=== PATIENT | female | born 1945 | race Caucasian/White ===

== ENCOUNTER 2023-06-13 10:00 | Outpatient (RCR) | payer MEDICARE, OTHER, SELFPAY | END 2023-06-13 23:59 | disposition home or self-care (01) | LOC: RPT 10:00 | PROVIDERS: ATTENDING PHYSICIAN Orthopaedic Surgery Adult Reconstructive Orthopaedic Surgery; FAMILY PHYSICIAN Internal Medicine | DX: Z47.1 Aftercare following joint replacement surgery (principal); M25.552 Pain in left hip; Z73.6 Limitation of activities due to disability; R26.2 Difficulty in walking, not elsewhere classified; M62.81 Muscle weakness (generalized); R26.89 Other abnormalities of gait and mobility; Z96.642 Presence of left artificial hip joint | CPT/HCPCS: 97010; 97110; 97112; 97162 ==

== ENCOUNTER 2023-06-29 13:11 | Emergency (ER) | payer MEDICARE, OTHER, SELFPAY ==
[2023-06-29 13:14] VITALS: BP 204/71
[2023-06-29 13:39] LABS: % Basophils 0.6 % (0-2); % Immature Granulocytes 0.2 % (0-0.5); % Lymphocytes 22.7 % (20.5-51.1); % Monocytes 6.7 % (1.7-9.3); % Neutrophils 66.8 % (42.2-75.2); Absolute Basophils 0.1 10^3/uL (0-0.2); Absolute Eosinophils 0.2 10^3/uL (0-0.7); Absolute Lymphocytes 1.8 10^3/uL (1.2-3.4); Absolute Monocytes 0.5 10^3/uL (0.1-0.6); Absolute Neutrophils 5.4 10^3/uL (1.4-6.5); Hematocrit 40.3 % (37.0-47.0); Hemoglobin 13.5 g/dL (12.0-16.0); Mean Corp Hgb Conc. 33.5 g/dL (33.0-37.0); Mean Corpuscular Hgb 28.8 pg (27.0-31.0); Mean Corpuscular Volume 86.1 fL (81.0-99.0); Mean Platelet Volume 9.5 fL (7.4-10.4); Nucleated Red Blood Cells % 0 %; Platelet Count 228 10^3/uL (130-400); Red Blood Cell Count 4.68 10^6/uL (4.20-5.40); Red Cell Dist. Width 13.8 % (11.5-14.5); White Blood Cell Count 8.1 10^3/uL (4.8-10.8)
[2023-06-29 13:58] LABS: AST (SGOT) 31 U/L (14-36); Albumin 4.3 g/dl (3.5-5.0); Alkaline Phosphatase 84 U/L (38-126); Blood Urea Nitrogen 14 mg/dl (7-17); Calcium 9.8 mg/dl (8.4-10.2); Carbon Dioxide 32 mmol/L (22-30); Chloride 103 mmol/L (98-107); Glucose 113 mg/dl (70-99); Magnesium 2.1 mg/dl (1.6-2.3); Potassium 3.8 mmol/L (3.5-5.1); Sodium 139 mmol/L (135-145); Total Bilirubin 0.8 mg/dl (0.2-1.3); Total Protein 7.1 g/dl (6.3-8.2); eGFR > 60.00
[2023-06-29 14:06] LABS: ALT (SGPT) 24 U/L (0-35)
[2023-06-29 16:31] VITALS: BP 185/91
[2023-06-29 17:00] VITALS: BP 180/86
--- NOTE | 2023-06-29 17:06 | ED.GENMED ---
History of Present Illness
General
Chief Complaint: Blood Pressure Problem
Source: patient
Time Seen by Provider: 06/29/23 16:17
Travel History
Have you had any contact with someone who has COVID-19?: No
Do you have any symptoms of coronavirus? Fever > 100 degrees, chills, cough, shortness of breath, sore throat, loss of taste or smell, muscle aches, or headache?: No
History of Present Illness
History of Present Illness:
77-year-old female with past medical history of hypertension, hyperlipidemia and anxiety presenting emergency department for evaluation of elevated blood pressure at home noting that today when she took her blood pressure it was 206/110. Patient
states that since Tuesday she has been hearing intermittent 'whooshing sensation in her right ear' that has been intermittent, often will only last for around 1 minute and then resolved. Patient states that when the symptoms started this past
Tuesday she could feel her pulse at the front of her ear on the right side which she states she does not remember if she is felt that before. Patient noted that she recently started a magnesium supplement for cognitive reasons and wonders if the
magnesium may have caused her symptoms. She denies any fevers or recent illnesses/URI-like symptoms, auditory changes, visual disturbances, headache, chest pain, shortness of breath or any other concerns. She states that she is on isosorbide for
blood pressure and notes that she had been on lisinopril before but her primary took her off of this a little while ago. Family history was noncontributory for any neurologic problems.
Past History
Past History
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
ED Past Surgical History: and Orthopedic
Social History
Tobacco: Non-smoker
Alcohol: None
Drug: None
Personal:
Living: with family
Employment: Retired
Family History
Family History: CAD
Review of Systems
Review of Systems
All Other Systems: ROS reviewed and negative except as documented in HPI and ROS
Phy Exam
Physical Exam
Physical Exam:
GENERAL: Alert , in no apparent distress
EYE: pupils equal and reactive, EOMI, pupils 3 mm bilateral, no nystagmus
NECK: Supple, no significant adenopathy. No carotid bruit
ENT: o/p clr, mmm. TMs clear and pearly bilateral, cone of light visualized bilateral, no TM perforations
CARDIAC: Regular rate and rhythm, no murmur.
LUNGS: Clear breath sounds bilaterally, no acute respiratory distress, no wheezes/rales/rhonchi
NEUROLOGICAL: Alert and oriented, no focal neuro deficits, moves all extremities and ambulates with steady gait
SKIN: Warm and dry, skin intact.
MUSCULOSKELETAL: No edema, well perfused.
PSYCH: Normal and appropriate interaction.
Scores
Heart Failure Risk
Heart Failure Risk Score: Not Applicable
Heart Score for Chest Pain Patients
STEMI patient?: Not applicable
Withdrawal Assessment of Alcohol
Withdrawal Assessment Completed?: Not applicable
Course
Orders/Labs/Results
Orders:
Orders
06/29/23 13:18
EKG [Electrocardiogram (*1)] Urgent
Reason for Study: Hypertension, Benign
06/29/23 13:19
EKG- Treatment ONCE
06/29/23 13:25
Complete Blood Count/With Diff Urgent
Comprehensive Metabolic Panel Urgent
Magnesium Urgent
06/29/23 16:21
CT Head W/o Iv Contrast Urgent
Comment:
Reason For Exam: HTN, headache
Abnormal Lab Results
06/29/23
13:25
Carbon Dioxide 32 H mmol/L
(22-30)
Glucose 113 H mg/dl
(70-99)
06/29/23 13:25
06/29/23 13:25
Vital Signs
Initial and Last Documented VS:
Initial Vital Signs
Temp Pulse Resp BP Pulse Ox
98.7 F 79 18 204/71 95
06/29/23 13:14 06/29/23 13:14 06/29/23 13:14 06/29/23 13:14 06/29/23 13:14
Last Documented Vital Signs
Temp Pulse Resp BP Pulse Ox
98.7 F 69 13 162/74 96
06/29/23 13:14 06/29/23 19:15 06/29/23 19:15 06/29/23 19:00 06/29/23 19:15
MDM/Problems Addressed
Differential Diagnosis Includes:
Tinnitus, infectious etiology such as otitis media/externa, vascular/arterial disease, aneurysm, carotid stenosis, hypertensive urgency/emergency
MDM/Problems Addressed:
77-year-old female presenting to the emergency department for evaluation noting a whooshing sensation in her right ear that is different from previous episodes of tinnitus she has had in the past. She is denying any other symptoms including
headache, visual changes, focal weakness or numbness or any other concerns. Due to the persistent nature of her symptoms she decided to check her blood pressure today when she noted it to be significantly elevated at greater than 200 systolically
and 100 diastolically. Patient blood pressure is somewhat improved on arrival here and during my exam patient's blood pressure is 180/86. She is asymptomatic at time of my exam as well. No focal physical exam findings. Due to the elevated blood
pressure will check a CT of the head. Reassessment following. Of note, when going back and looking at patient's ER history she has had blood pressures in similar range and she does note a history of 'whitecoat syndrome'
Chronic conditions affecting care: HTN
Acute Exacerbation and/or Progression of Chronic Illness: HTN
*Radiology
Radiology exam reviewed: radiology read reviewed
*Pulse Oximetry
Patient hypoxic: no
*EKG
Interpreted by ED Provider?: Yes
Comparison EKG: no changes
Heart Rate: 83
Rate: normal
Rhythm: sinus and PVC's
[place]: normal axis
Ischemia: no ischemia
*Critical Care Note
Total Time (30-74mins, 75-104mins- exclusive of procedures): Not Applicable
Data Reviewed
Review of Other/Old Records Reveals: Testing
Source: patient
Patient Management
Escalation/DeEscalation of care consider admission/obs:
CT negative for any acute pathologies. Patient's blood pressure while still hypertensive is significantly improved from initial. She remains asymptomatic. Advise close follow-up with primary care physician. Aware of return precautions but
otherwise stable for discharge home.
ED Attending Note
-
Portions of this chart may have been created with voice recognition software.� Occasional wrong word or��sound alike� substitutions may have occurred due to the inherent limitations of voice recognition software.
Discharge Plan
Departure
Patient Disposition: Home (Routine Discharge)
Date of Disposition: 06/29/23
Time of Disposition: 19:29
Patient with high blood pressure during this ER visit?: Yes
Discharge Problem:
Essential (primary) hypertension
Instructions: High Blood Pressure (DC)
Prescriptions:
No Action
multivitamin [Multi-Day] 1 EACH tablet
1 ea PO DAILY
cyanocobalamin (vitamin B-12) 1,000 MCG tablet
1,000 mcg PO DAILY
diazepam 5 MG tablet
5 mg PO PRN PRN (Reason: anxiety)
Patient Comments:
patient reports taking this medication about 4 months ago
cholecalciferol (vitamin D3) [Vitamin D3] 1,000 UNIT capsule
1,000 unit PO DAILY
cranberry extract 500 MG capsule
500 mg PO DAILY
coenzyme [id number] [Co Q-10 (with Vit E)] 1 EACH capsule
1 ea PO DAILY
L.acidoph, paracasei,B. lactis 1 EACH capsule
1 ea PO DAILY
Patient Comments:
Takes Align
simvastatin 20 MG tablet
20 mg PO HS
Flonase Nasal [place]:
2 sprays DAILY
Patient Comments:
2 sprays each nostril daily
sennosides [senna] 1 TABLET tablet
2 tab PO BID Qty: 0 0RF
acetaminophen 325 MG tablet
650 mg PO QID Qty: 0 0RF
polyethylene glycol 3350 17 GRAMS powder in packet
17 grams PO DAILY Qty: 0 0RF
aspirin 81 MG tablet,delayed release (DR/EC)
162 mg PO BID Qty: 0 0RF
Rx Instructions:
w food
magnesium hydroxide 30 ML suspension
30 ml PO DAILYPRN PRN (Reason: constipation) Qty: 0 0RF
oxycodone 5 MG tablet
5 mg PO Q4HPRN PRN (Reason: moderate-severe pain) Qty: 90 0RF
Rx Instructions:
dx tka
1-2 tabs
ongoing therapy
lisinopril 10 MG tablet
20 mg PO DAILY Qty: 0 0RF
Rx Instructions:
hold x 2 d, then resume if systolic BP >130
hydrochlorothiazide [Microzide] 12.5 MG capsule
25 mg PO DAILY Qty: 0 0RF
Rx Instructions:
resume tuesday06/07/16, if systolic bp >130
Referrals:
Charlotte Courtney MD [Family Provider] -
Interventions
Interventions:
*Risk Screen - Suicide Last Done: 06/29/23 13:14
*General Assessment Last Done: 06/29/23 13:14
*Neglect/Abuse Screening Last Done: 06/29/23 16:15
ED- Fall Risk Assessment Last Done: 06/29/23 16:57
*ED COVID-19 Vaccine History Last Done: 06/29/23 13:14
*Nursing Disposition Last Done: 06/29/23 19:44
ED- Cardiac Assessment Last Done: 06/29/23 16:57
ED- Neurological Assessment Last Done: 06/29/23 16:57
ED- Pulmonary Assessment Last Done: 06/29/23 16:57
Discharge Date and Time
Discharge Date/Time: 06/29/23 19:51
[2023-06-29 18:00] VITALS: BP 163/73
[2023-06-29 19:00] VITALS: BP 162/74
== END 2023-06-29 19:51 | disposition home or self-care (01) ==
LOC: EMR 13:11
PROVIDERS: Emergency Medicine; EMERGENCY PHYSICIAN Emergency Medicine; FAMILY PHYSICIAN Internal Medicine
DX: I10 Essential (primary) hypertension (principal); E78.00 Pure hypercholesterolemia, unspecified; F41.9 Anxiety disorder, unspecified; Z79.899 Other long term (current) drug therapy; Z79.82 Long term (current) use of aspirin; Z88.8 Allergy status to other drugs, medicaments and biological substances; Z91.048 Other nonmedicinal substance allergy status
CPT/HCPCS: 99284; 70450; 80053; 83735; 85025; 93005

== ENCOUNTER 2023-07-11 12:59 | Outpatient (RCR) | payer MEDICARE, OTHER, SELFPAY | END 2023-07-11 23:59 | disposition home or self-care (01) | LOC: RPT 12:59 | PROVIDERS: ATTENDING PHYSICIAN Orthopaedic Surgery Adult Reconstructive Orthopaedic Surgery; FAMILY PHYSICIAN Internal Medicine | DX: Z47.1 Aftercare following joint replacement surgery (principal); M25.552 Pain in left hip; Z73.6 Limitation of activities due to disability; R26.2 Difficulty in walking, not elsewhere classified; M62.81 Muscle weakness (generalized); Z96.642 Presence of left artificial hip joint | CPT/HCPCS: 97110 ==

== ENCOUNTER 2023-07-15 09:36 | Outpatient (RCR) | payer MEDICARE, OTHER, SELFPAY | END 2023-07-15 23:59 | disposition home or self-care (01) | LOC: RPT 09:36 | PROVIDERS: ATTENDING PHYSICIAN Orthopaedic Surgery Adult Reconstructive Orthopaedic Surgery; FAMILY PHYSICIAN Internal Medicine | DX: Z47.1 Aftercare following joint replacement surgery (principal); M25.552 Pain in left hip; Z73.6 Limitation of activities due to disability; R26.2 Difficulty in walking, not elsewhere classified; M62.81 Muscle weakness (generalized); Z96.642 Presence of left artificial hip joint | CPT/HCPCS: 97110 ==

== ENCOUNTER → 2023-09-05 15:49 | Outpatient (REF) | payer MEDICARE, OTHER, SELFPAY | LOC: HWWDC 15:49 | PROVIDERS: ATTENDING PHYSICIAN Internal Medicine | DX: Z12.31 Encounter for screening mammogram for malignant neoplasm of breast (principal) | CPT/HCPCS: 77063; 77067 ==

== ENCOUNTER → 2023-10-04 09:15 | Outpatient (REF) | payer MEDICARE, OTHER, SELFPAY | LOC: DHSLP 09:15 | PROVIDERS: ATTENDING PHYSICIAN Internal Medicine Critical Care Medicine; FAMILY PHYSICIAN Internal Medicine | DX: G47.33 Obstructive sleep apnea (adult) (pediatric) (principal); G47.61 Periodic limb movement disorder | CPT/HCPCS: 95811 ==

== ENCOUNTER → 2024-01-19 09:24 | Outpatient (REF) | payer MEDICARE, OTHER, SELFPAY | LOC: HWRAD 09:24 | PROVIDERS: ATTENDING PHYSICIAN Internal Medicine | DX: Z78.0 Asymptomatic menopausal state (principal) | CPT/HCPCS: 77080 ==

== ENCOUNTER 2024-07-13 10:06 | Outpatient (RCR) | payer MEDICARE, OTHER, SELFPAY | END 2024-07-13 23:59 | disposition home or self-care (01) | LOC: RPT 10:06 | PROVIDERS: ATTENDING PHYSICIAN Orthopaedic Surgery Adult Reconstructive Orthopaedic Surgery; FAMILY PHYSICIAN Internal Medicine | DX: M25.552 Pain in left hip (principal); M70.72 Other bursitis of hip, left hip; Z73.6 Limitation of activities due to disability; R26.89 Other abnormalities of gait and mobility; Z96.642 Presence of left artificial hip joint | CPT/HCPCS: 97110; 97140; 97162 ==

== ENCOUNTER 2024-07-31 09:57 | Outpatient (RCR) | payer MEDICARE, OTHER, SELFPAY | END 2024-07-31 11:33 | disposition home or self-care (01) | LOC: RPT 09:57 | PROVIDERS: ATTENDING PHYSICIAN Orthopaedic Surgery Adult Reconstructive Orthopaedic Surgery; FAMILY PHYSICIAN Internal Medicine | DX: M25.552 Pain in left hip (principal); M70.72 Other bursitis of hip, left hip; R26.89 Other abnormalities of gait and mobility; Z73.6 Limitation of activities due to disability; Z96.642 Presence of left artificial hip joint | CPT/HCPCS: 97110 ==

== ENCOUNTER → 2024-10-02 12:49 | Outpatient (REF) | payer MEDICARE, OTHER, SELFPAY | LOC: HWRCS 12:49 | PROVIDERS: ATTENDING PHYSICIAN Internal Medicine Cardiovascular Disease; FAMILY PHYSICIAN Internal Medicine | DX: I49.3 Ventricular premature depolarization (principal); E78.00 Pure hypercholesterolemia, unspecified; I10 Essential (primary) hypertension; R60.0 Localized edema | CPT/HCPCS: 93306 ==

== ENCOUNTER → 2024-10-05 11:59 | Outpatient (REF) | payer MEDICARE, OTHER, SELFPAY | LOC: RCS 11:59 | PROVIDERS: ATTENDING PHYSICIAN Internal Medicine Cardiovascular Disease; FAMILY PHYSICIAN Internal Medicine | DX: I49.3 Ventricular premature depolarization (principal); R00.1 Bradycardia, unspecified; E78.00 Pure hypercholesterolemia, unspecified; R07.89 Other chest pain | CPT/HCPCS: 78452; 93017; A9500; J2785 ==

== ENCOUNTER → 2024-12-24 09:56 | Outpatient (REF) | payer MEDICARE, OTHER, SELFPAY | LOC: HWWDC 09:56 | PROVIDERS: ATTENDING PHYSICIAN Internal Medicine | DX: Z12.31 Encounter for screening mammogram for malignant neoplasm of breast (principal) | CPT/HCPCS: 77063; 77067 ==

== ENCOUNTER 2025-02-01 15:28 | Inpatient (IN) | payer MEDICARE, OTHER, SELFPAY ==
[2025-01-31 23:29] VITALS: BP 199/107
--- NOTE | 2025-01-31 23:43 | ED.GENMED ---
History of Present Illness
<Cristina Rivera PA-C - Last Filed: 02/01/25 02:30>
General
Chief Complaint: Chest Pain
Source: patient and family
Exam Limitations: none
Time Seen by Provider: 01/31/25 23:42
Nursing documentation reviewed up to this point in time: agreed with
History of Present Illness
History of Present Illness:
Patient is a 79-year-old female with history of hypertension, hyperlipidemia who presents to the emergency department for evaluation of chest tightness. Patient [place] she had a gradual onset tightness sensation in
her central chest wrapping around through her central back. This pain initially started around 9:30 PM. She describes it mainly as a tightness/pressure sensation with a minimal sharp component.
She denies any associated shortness of breath however does have some difficulty taking a deep breath. No associated lightheadedness/dizziness, diaphoresis, or nausea. No visual changes or numbness/tingling in extremities.
Patient did not have anything to eat immediately prior to onset of symptoms. She states she last ate out of a hoagie and some ice cream around 4 PM.
Patient has a history of acid reflux and initially felt that symptoms were similar however given the severity and persistence she asked her to drive her to the emergency department for evaluation.
By my assessment�patient states the pressure in her chest has started to dissipate however she still has a significant amount of discomfort in her mid back.
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 She is not on any oral anticoagulation.
Past History
<Cristina Rivera PA-C - Last Filed: 02/01/25 02:30>
Past History
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
ED Past Surgical History: and Orthopedic
Social History
Tobacco: Non-smoker
Alcohol: None
Drug: None
Personal:
Living: with family
Employment: Retired
Family History
Family History: CAD
Review of Systems
<Cristina Rivera PA-C - Last Filed: 02/01/25 02:30>
Review of Systems
Allergies reviewed?: Yes
All Other Systems: ROS reviewed and negative except as documented in HPI and ROS
Phy Exam
<Cristina Rivera PA-C - Last Filed: 02/01/25 02:30>
Physical Exam
Physical Exam:
Vitals: Hypertensive on arrival, otherwise vital signs stable. Afebrile
General: Patient is moderately uncomfortable appearing due to pain.
Skin: Warm and dry, no rashes or lesions
Head: Normocephalic, atraumatic
Eyes: Sclera nonicteric. EOMs intact. No nystagmus.
Throat: Protecting airway
Neck: Normal ROM, no cervical spine tenderness, no meningismus
Cardiac: Regular rate and rhythm, no murmurs. 2+ palpable and equal radial pulses bilaterally. No reproducible chest wall tenderness
Pulm: Normal respiratory effort, no wheezes, rales, rhonchi heard on exam
Abdomen: Abdomen soft and nontender.
Extremities: No evidence of cyanosis or edema
Neuro: AAOx3. Grossly intact.
Psychiatric: Normal affect.
Scores
<Cristina Rivera PA-C - Last Filed: 02/01/25 02:30>
Heart Score for Chest Pain Patients
STEMI patient?: No
History: Moderately Suspicious
ECG: Normal
Age: >/= 65 years
Risk Factors: 1 or 2 Risk Factors
Troponin: >/= 3 x Normal Limit
Heart Score for Chest Pain Patients: 6
Heart Score Risk: 20.3% MACE over next 6 weeks
Course
<Cristina Rivera PA-C - Last Filed: 02/01/25 02:30>
Orders/Labs/Results
Orders:
Orders
01/31/25 23:18
Electrocardiogram (*1) Urgent
Reason for Study: Other
Other Reason for Exam: Respiratory Distress
Cardiac Monitoring- Treatment ONCE
EKG- Treatment ONCE
IV Insert/Care/Rem.- Treatment PRN
Complete Blood Count/With Diff Urgent
Comprehensive Metabolic Panel Urgent
NT-proBNP Urgent
Troponin I Urgent
O2 Therapy [RESP] Urgent
Titrate/Wean O2 to maintain O2 sat greater than (%): 93
Special Instructions: TO MAINTAIN CONTINUOUS O2 SATS >/= 93%
Pulse Ox/cont/shift [RESP] Urgent
Quantity: 1
Special Instructions: continuous pulse ox
02/01/25 00:00
Famotidine [Pepcid] 20 mg IV NOW STA
02/01/25 00:05
CR Chest - 2 Views Urgent
Reason For Exam: respiratory distress
02/01/25 00:13
CT Chest/abd/pelvis Angio W/wo Urgent
Comment:
Reason For Exam: Mid back pain
Acetaminophen [Tylenol] 650 mg PO NOW STA
02/01/25 00:24
D-Dimer Urgent
PTT Urgent
Comment: ADD ON
02/01/25 00:28
0.9% Sodium Chloride 500 ml [Nss] 500 ml IV BOLUS
02/01/25 01:48
0.9% Sodium Chloride 1000 ml [Nss] 1,000 ml IV BOLUS
02/01/25 02:18
PTT Urgent
Comment: Obtain baseline before beginning heparin infusion if not already collected
Aspirin Chewable [Low Strength Aspirin] 324 mg PO NOW STA
Heparin 4,000 units IV NOW STA
Nitroglycerin Sublingual [Nitrostat (Sublingual)] 0.4 mg SL NOW STA
Nursing to Place Non Medication Order As Directed
Physician Order: PTT 6 hours after initial start of Heparin infusion
02/01/25 02:21
Add On- LAB Stat
Tests Added?: PTT
02/01/25 02:25
Heparin 60686 Units/250 ml 25,000 units in 250 ml .ROUTE .STK-MED
02/01/25 02:30
Heparin 40205 Units/250 ml 25,000 units in 250 ml IV PER PROTOCOL
Weight to be used for heparin protocol in kilograms (kg):: 93.9
Protocol:: Cardiac Tx/Acute Coronary
PTT Goal Range to be used:: PTT 73 to 111 seconds
Order type:: Initial
INITIAL Infusion Dose (UNITS/KG/hr) & then follow protocol:: 12 units/kg/hr
Infusion Dose in UNITS/hr & then follow protocol (UNITS/hr):: 1,000
INFUSION RATE in mL/hr & then follow protocol (mL/hr):: 10
PTT less than or equal to 64 seconds:: Increase rate by 200 units/hr (+ 2 mL/hr)
PTT 64.1 to 72.9 seconds:: Increase rate by 100 units/hr (+ 1 mL/hr)
PTT 73 to 111 seconds:: Target Range. No change in rate.
PTT 111.1 to 130.9 seconds:: Decrease rate by 100 units/hr (- 1 mL/hr)
PTT 131 to 199.9 seconds:: HOLD for 1 hr. Then decrease rate by 200 units/hr (- 2 mL/hr)
PTT greater than or equal to 200 seconds:: HOLD for 2 hrs & Notify Provider. Then decrease by 200 units/hr (-
2 mL/hr)
Lab follow-up:: Each change, PTT q6h until 2 consecutive are therapeutic. Then PTT
daily.
02/01/25 03:30
Electrocardiogram (*1) Urgent
Reason for Study: Chest Pain
EKG- Treatment ONCE
Troponin I Urgent
Abnormal Lab Results
09/19/25
00:24
Lymphocytes % 19.6 L %
(20.5-51.1)
BUN 23 H mg/dl
(7-17)
Glucose 113 H mg/dl
(70-99)
Troponin I 0.093 H* ng/ml
02/01/25 00:24
02/01/25 00:24
Vital Signs
Initial and Last Documented VS:
Initial Vital Signs
Temp Pulse Resp BP Pulse Ox
98 F 72 20 199/107 96
01/31/25 23:29 01/31/25 23:29 01/31/25 23:29 01/31/25 23:29 01/31/25 23:29
Last Documented Vital Signs
Temp Pulse Resp BP Pulse Ox
98 F 74 22 143/60 94
01/31/25 23:29 02/01/25 02:00 02/01/25 02:00 02/01/25 02:00 02/01/25 02:09
<Sea Jenkins, DO - Last Filed: 02/01/25 01:35>
Orders/Labs/Results
Orders:
Orders
01/31/25 23:18
Electrocardiogram (*1) Urgent
Reason for Study: Other
Other Reason for Exam: Respiratory Distress
Cardiac Monitoring- Treatment ONCE
EKG- Treatment ONCE
IV Insert/Care/Rem.- Treatment PRN
Complete Blood Count/With Diff Urgent
Comprehensive Metabolic Panel Urgent
NT-proBNP Urgent
Troponin I Urgent
O2 Therapy [RESP] Urgent
Titrate/Wean O2 to maintain O2 sat greater than (%): 93
Special Instructions: TO MAINTAIN CONTINUOUS O2 SATS >/= 93%
Pulse Ox/cont/shift [RESP] Urgent
Quantity: 1
Special Instructions: continuous pulse ox
02/01/25 00:00
Famotidine [Pepcid] 20 mg IV NOW STA
02/01/25 00:05
CR Chest - 2 Views Urgent
Reason For Exam: respiratory distress
02/01/25 00:13
CT Chest/abd/pelvis Angio W/wo Urgent
Comment:
Reason For Exam: Mid back pain
Acetaminophen [Tylenol] 650 mg PO NOW STA
02/01/25 00:24
D-Dimer Urgent
PTT Urgent
Comment: ADD ON
02/01/25 00:28
0.9% Sodium Chloride 500 ml [Nss] 500 ml IV BOLUS
02/01/25 01:48
0.9% Sodium Chloride 1000 ml [Nss] 1,000 ml IV BOLUS
02/01/25 02:18
PTT Urgent
Comment: Obtain baseline before beginning heparin infusion if not already collected
Aspirin Chewable [Low Strength Aspirin] 324 mg PO NOW STA
Heparin 4,000 units IV NOW STA
Nitroglycerin Sublingual [Nitrostat (Sublingual)] 0.4 mg SL NOW STA
Nursing to Place Non Medication Order As Directed
Physician Order: PTT 6 hours after initial start of Heparin infusion
02/01/25 02:21
Add On- LAB Stat
Tests Added?: PTT
02/01/25 02:25
Heparin 72208 Units/250 ml 25,000 units in 250 ml .ROUTE .STK-MED
02/01/25 02:30
Heparin 83041 Units/250 ml 25,000 units in 250 ml IV PER PROTOCOL
Weight to be used for heparin protocol in kilograms (kg):: 93.9
Protocol:: Cardiac Tx/Acute Coronary
PTT Goal Range to be used:: PTT 73 to 111 seconds
Order type:: Initial
INITIAL Infusion Dose (UNITS/KG/hr) & then follow protocol:: 12 units/kg/hr
Infusion Dose in UNITS/hr & then follow protocol (UNITS/hr):: 1,000
INFUSION RATE in mL/hr & then follow protocol (mL/hr):: 10
PTT less than or equal to 64 seconds:: Increase rate by 200 units/hr (+ 2 mL/hr)
PTT 64.1 to 72.9 seconds:: Increase rate by 100 units/hr (+ 1 mL/hr)
PTT 73 to 111 seconds:: Target Range. No change in rate.
PTT 111.1 to 130.9 seconds:: Decrease rate by 100 units/hr (- 1 mL/hr)
PTT 131 to 199.9 seconds:: HOLD for 1 hr. Then decrease rate by 200 units/hr (- 2 mL/hr)
PTT greater than or equal to 200 seconds:: HOLD for 2 hrs & Notify Provider. Then decrease by 200 units/hr (-
2 mL/hr)
Lab follow-up:: Each change, PTT q6h until 2 consecutive are therapeutic. Then PTT
daily.
02/01/25 03:30
Electrocardiogram (*1) Urgent
Reason for Study: Chest Pain
EKG- Treatment ONCE
Troponin I Urgent
Abnormal Lab Results
02/01/25
00:24
Lymphocytes % 19.6 L %
(20.5-51.1)
BUN 23 H mg/dl
(7-17)
Glucose 113 H mg/dl
(70-99)
Troponin I 0.093 H* ng/ml
02/01/25 00:24
02/01/25 00:24
Vital Signs
Initial and Last Documented VS:
Initial Vital Signs
Temp Pulse Resp BP Pulse Ox
98 F 72 20 199/107 96
01/31/25 23:29 01/31/25 23:29 01/31/25 23:29 01/31/25 23:29 01/31/25 23:29
Last Documented Vital Signs
Temp Pulse Resp BP Pulse Ox
98 F 74 22 143/60 94
01/31/25 23:29 02/01/25 02:00 02/01/25 02:00 02/01/25 02:00 02/01/25 02:09
<Cristina iRvera PA-C - Last Filed: 02/01/25 02:30>
MDM/Problems Addressed
Differential Diagnosis Includes:
Not limited to: Acute coronary syndrome, pulmonary embolism, aortic dissection, GERD, muscle strain, pericarditis/myocarditis, etc.
MDM/Problems Addressed:
79-year-old female presenting with gradual onset substernal chest tightness radiating around to her back while at the [employer] tonight around 930. No associated shortness of breath, lightheadedness/dizziness, diaphoresis. No clear exertional
component to symptoms. Symptoms were not postprandial in nature. Chest pressure improved by my evaluation however she still has significant back discomfort. Patient hypertensive on arrival with otherwise stable vital signs. On exam - she appears
moderately uncomfortable however in no respiratory distress. Cardio/pulmonary assessment unremarkable. No reproducible back pain on exam. She has palpable and equal peripheral pulses. BP R arm 155/73. BP L arm 161/69.
EKG obtained in triage shows normal sinus rhythm without acute ischemic changes
Differential as above. Considered acute coronary syndrome vs GERD versus muscle strain. Other differentials include pulmonary embolism, aortic dissection, pericarditis, etc.
ED plan: Cardiac workup including labs, serial troponin/EKGs. Given significant back discomfort�will obtain dissection study.
Update: Labs reviewed. No clinically significant abnormalities on CBC or CMP. Just prior to CT scan, troponin did result and is elevated to 0.093. Concern for ischemic process. However�Will proceed with dissection study to rule out dissection or
pulmonary embolism prior to treatment.
Update 2:28 AM: CTA chest/abdomen/pelvis without acute pathology. At this point�concern for cardiac ischemia. Patient does still have pressure in central chest and back. Will give sublingual nitro. Patient given full-strength aspirin and heparin
started in ED. Patient will require admission to hospitalist service for further management and cardiology consult. Hospitalist aware. Patient seen with attending physician.
Chronic conditions affecting care:
Hypertension
Acute Exacerbation and/or Progression of Chronic Illness:
Acutely hypertensive
<Cristina Rivera PA-C - Last Filed: 02/01/25 02:30>
*Radiology
Radiology exam reviewed: radiology read reviewed
*Pulse Oximetry
SaO2: 96
Oxygen Mode of Delivery: Room air
Patient hypoxic: no
*EKG
Interpreted by ED Provider?: Yes
EKG Intrepretation Date: 01/31/25
Interpretation: abnormal
Comparison EKG: no changes
Heart Rate: 70
Rate: normal
Rhythm: sinus and PAC's
Rhinelander: normal axis
Interval: normal QT interval
Ischemia: non-specific ST changes
*Tufting Machine Fixer Interpretation
Rate: normal
Interpretation: normal
Heart Rate: 62
Rhythm: sinus
*Critical Care Note
Total Time (30-74mins, 75-104mins- exclusive of procedures): 35
comment:
Critical care statement: A total of 35 minutes of critical care time was provided for this patient. This includes management of unstable vital signs, evaluation of the patient at bedside, reviewing the patient's pertinent medical records, discussion
with consultants, review of old EKGs and review of pertinent medical records. This time with separate from time utilized to perform the aforementioned documented procedures
<Cristina Rivera PA-C - Last Filed: 02/01/25 02:30>
Patient Management
Discussion with other providers: Hospitalist
Escalation/DeEscalation of care consider admission/obs:
Admit indicated
ED Attending Note
<Cristina Rivera PA-C - Last Filed: 02/01/25 02:30>
-
Portions of this chart may have been created with voice recognition software.� Occasional wrong word or��sound alike� substitutions may have occurred due to the inherent limitations of voice recognition software.
<Sea Jenkins DO - Last Filed: 02/01/25 01:35>
ED Attending Note
Patient seen and examined by attending physician: Yes
ED Attending Note:
Pleasant 79-year-old female presents with upper back pain that is different than her typical back pain. Began around 5:30 PM while playing cards [place] a casino. She states that the pain radiated across her back. She did have some chest pain that
accompanied patient was seen in conjunction with the PA. I have reviewed and agree with her history and treatment plan. On my independent physical exam patient is awake and alert oriented x 3, moderate acute distress. No respiratory distress.
Troponin elevated. Patient likely to be admitted
Discharge Plan
Departure
Patient Disposition: Admit
Date of Disposition: 02/01/25
Time of Disposition: 02:22
Presentation/result/management discussed w/ accepting MD/DO: Hospitalist
Discharge Problem:
Non-ST elevation [place] (NSTEMI)
Prescriptions:
No Action
multivitamin [Multi-Day] 1 EACH tablet
1 ea PO DAILY
cyanocobalamin (vitamin B-12) 1,000 MCG tablet
1,000 mcg PO DAILY
diazepam 5 MG tablet
5 mg PO PRN PRN (Reason: anxiety)
Patient Comments:
patient reports taking this medication about 4 months ago
cholecalciferol (vitamin D3) [Vitamin D3] 1,000 UNIT capsule
1,000 unit PO DAILY
cranberry extract 500 MG capsule
500 mg PO DAILY
coenzyme [id number] [Co Q-10 (with Vit E)] 1 EACH capsule
1 ea PO DAILY
L.acidoph,paracasei,B.animalis 1 EACH capsule
1 ea PO DAILY
Patient Comments:
Takes Align
simvastatin 20 MG tablet
20 mg PO HS
Flonase Nasal Star:
2 sprays DAILY
Patient Comments:
2 sprays each nostril daily
sennosides [senna] 1 TABLET tablet
2 tab PO BID Qty: 0 0RF
acetaminophen 325 MG tablet
650 mg PO QID Qty: 0 0RF
polyethylene glycol 3350 17 GRAMS powder in packet
17 grams PO DAILY Qty: 0 0RF
aspirin 81 MG tablet,delayed release (DR/EC)
162 mg PO BID Qty: 0 0RF
Rx Instructions:
w food
magnesium hydroxide 30 ML suspension
30 ml PO DAILYPRN PRN (Reason: constipation) Qty: 0 0RF
oxycodone 5 MG tablet
5 mg PO Q4HPRN PRN (Reason: moderate-severe pain) Qty: 90 0RF
Rx Instructions:
dx tka
1-2 tabs
ongoing therapy
lisinopril 10 MG tablet
20 mg PO DAILY Qty: 0 0RF
Rx Instructions:
hold x 2 d, then resume if systolic BP >130
hydrochlorothiazide [Microzide] 12.5 MG capsule
25 mg PO DAILY Qty: 0 0RF
Rx Instructions:
resume tuesday06/07/16, if systolic bp >130
Referrals:
Charlotte Courtney MD [Family Provider, Internal Medicine]
Interventions
Interventions:
*Risk Screen - Suicide Last Done: 01/31/25 23:29
*General Assessment Last Done: 01/31/25 23:29
*Neglect/Abuse Screening Last Done: 01/31/25 23:29
*ED- Fall Risk Assessment Last Done: 01/31/25 23:29
*ED COVID-19 Vaccine History Last Done: 01/31/25 23:29
ED- Cardiac Assessment Last Done: 02/01/25 00:00
Discharge Date and Time
Print Language: LAO
[2025-02-01] VITALS (33 sets, daily range): BP systolic 111–185; BP diastolic 45–112; BMI 37.9; BMI 36.9
[2025-02-01] MEDS: NSS 500 IV ×2 (00:31→09:01)
[2025-02-01] MEDS: TYLENOL 650 MG PO (00:32)
[2025-02-01] MEDS: PEPCID 20 MG IV (00:32)
[2025-02-01 00:55] LABS: D-Dimer 0.39 ug/mlFEU (0.00-0.50)
[2025-02-01 01:05] LABS: ALT (SGPT) 27 U/L (0-35); AST (SGOT) 30 U/L (14-36); Albumin 4.4 g/dl (3.5-5.0); Alkaline Phosphatase 81 U/L (38-126); Blood Urea Nitrogen 23 mg/dl (7-17); Calcium 9.5 mg/dl (8.4-10.2); Carbon Dioxide 28 mmol/L (22-30); Chloride 102 mmol/L (98-107); Estimated Creatinine Clearance 49 ml/min; Glucose 113 mg/dl (70-99); Potassium 4.7 mmol/L (3.5-5.1); Sodium 135 mmol/L (135-145); Total Protein 7.0 g/dl (6.3-8.2); eGFR 57.66
[2025-02-01 01:11] LABS: Hematocrit 40.7 % (37.0-47.0); Hemoglobin 13.8 g/dL (12.0-16.0); Mean Corp Hgb Conc. 33.9 g/dL (33.0-37.0); Mean Corpuscular Volume 87.9 fL (81.0-99.0); Nucleated Red Blood Cells % 0 %; Platelet Count 245 10^3/uL (130-400); Red Cell Dist. Width 13.0 % (11.5-14.5)
[2025-02-01 01:23] LABS: Troponin I 0.093 ng/ml
[2025-02-01] MEDS: NSS 1000 IV ×2 (01:58→13:30)
[2025-02-01] MEDS: NITROSTAT (SUBLINGUAL) 0.4 MG SL ×2 (02:29→08:41)
[2025-02-01 02:30] LABS: APTT 29.2 Sec (23.4-35.0)
[2025-02-01] MEDS: LOW STRENGTH ASPIRIN 324 MG PO (02:41)
[2025-02-01] MEDS: HEPARIN 4000 UNITS IV (02:42)
[2025-02-01] MEDS: HEPARIN 25000 UNITS/250 ML IV (02:45)
--- NOTE | 2025-02-01 04:20 | HPS.HSE ---
Family Physician
-
Family Physician: Charlotte Courtney
Chief Complaint
-
Chest Pain
History of Present Illness
Patient is a 79y F with PMH significant for GERD / hiatal hernia, hypertension and JEREMI who presents to ED complaining of chest pain. Patient states that she developed substernal chest pain and mid back pain around 9:30 this evening while at the
casino. She left the casino and was on her way home but the pain did not improve. Patient denies any associated SOB, diaphoresis, nausea or lightheadedness. Pain was in a band-like fashion beneath the breasts / around the entire torso.
Patient reports long history of similar symptoms - which typically wake her in the middle of the night. She has attributed this previously to GERD / hiatal hernia. Symptoms are usually fairly brief and last no longer than 20 minutes or so. This
evening her symptoms persisted for > 45 minutes and seemed to be increasing in severity. She presented to the ED for further evaluation.
Patient has no personal history of heart disease. There is a strong family history of heart disease.
At the time of my examination, patient feels much improved - though she continues to note 2/10 pain in band-like fashion.
Medical History
Past Medical History
Past Medical History: Reports Other
Additional Past Medical History:
Hiatal Hernia / GERD
JEREMI on CPAP
Hypertension
Obesity
Past Surgical History: Reports Other
Additional Past Surgical History:
L TKA (x 3)
L BRANDON
x 3
Right Wrist ORIF
Social History
Tobacco: Non-smoker
Alcohol: None
Drug: None
Family History
Family History: Other (Father: CAD Mother: Valvular Heart Disease, DM Sister: CAD)
Allergies / Home Medications
Allergies reflects when Allergies were last updated in [facility].
Home Medications with original date entered in [facility]
Allergy/Medication List:
Allergies
Allergy/AdvReac Type Severity Reaction Status Date / Time
adhesive tape Allergy Rash Verified 01/31/25 23:29
nitrofurantoin (From Allergy Unknown Verified 01/31/25 23:29
Macrodantin)
Home Medications
L.acidoph,paracasei,B.animalis 10 billion cell capsule 1 ea PO DAILY 01/27/16
cholecalciferol (vitamin D3) 25 mcg (1,000 unit) capsule (Vitamin D3) 1,000 unit PO DAILY 01/27/16
coenzyme B30-vqzptny E 100 mg-5 unit capsule (Co Q-10 (with Vit E)) 1 ea PO DAILY 01/27/16
cranberry extract 500 mg capsule 500 mg PO DAILY 01/27/16
cyanocobalamin (vitamin B-12) 1,000 mcg tablet 1,000 mcg PO DAILY 01/27/16
multivitamin (Multi-Day tablet) 1 ea PO DAILY 01/27/16
aspirin 81 mg tablet,delayed release 162 mg (2 x 81 mg) PO BID ##0 06/03/16
magnesium hydroxide 400 mg/5 mL oral suspension 30 ml PO DAILYPRN PRN constipation ##0 06/03/16
isosorbide mononitrate 30 mg tablet,extended release 24 hr 30 mg PO DAILY 02/01/25
lisinopril 5 mg tablet 5 mg PO DAILY 02/01/25
metoprolol succinate 25 mg tablet,extended release 24 hr 25 mg PO DAILY 02/01/25
simvastatin 20 mg tablet 20 mg PO DAILY 02/01/25
Review of Systems
-
History Source: Patient
A 12 point ROS was completed and negative except as noted: Yes
Constitutional: Denies Fever or Chills
Respiratory: Denies Cough or Trouble Breathing
Cardiac: Reports Chest Pain and Palpitations; Denies Diaphoresis or Syncope
Abdomen/GI: Denies Abdominal Pain, Nausea, Vomiting or Diarrhea
: Denies Dysuria, Frequency or Flank Pain
Musculoskeletal: Reports Other (Back pain); Denies Joint Pain, Muscle Pain or Edema
Neurological: Denies Dizzy or Headache
Psych: Denies Depression or Anxiety
Physical Exam
Vital Signs
Vital Signs
Temp Pulse Resp BP Pulse Ox
98 F 83 12 156/75 92
01/31/25 23:29 02/01/25 04:00 02/01/25 04:00 02/01/25 04:00 02/01/25 04:00
Physical Exam
General: Other (79y F in no acute distress.)
HEENT: Moist mucous membranes and PERRLA
Respiratory: Clear; No Wheezes, Rales or Rhonchi
Cardiac: S1/S2 and Regular Rhythm; No Murmur
GI: Soft, Non Tender, Non Distended and Normal Bowel Sounds
Musculoskeletal: No Clubbing, No Cyanosis and No Edema
Neuro: AO x 3
Laboratory Results
-
02/01/25 00:24
02/01/25 00:24
Laboratory Results
APTT 29.2 Sec (23.4-35.0) 02/01/25 00:24
Total Bilirubin 0.8 mg/dl (0.2-1.3) 02/01/25 00:24
AST 30 U/L (14-36) 02/01/25 00:24
ALT 27 U/L (0-35) 02/01/25 00:24
Alkaline Phosphatase 81 U/L (38-126) 02/01/25 00:24
Troponin I 0.093 ng/ml H* 02/01/25 00:24
Impression/Plan
-
A/P: Patient is a 79y F with PMH significant for hypertension, JEREMI and obesity who presents to ED complaining of chest pain.
Chest Pain / Possible ACS
- Admit for further evaluation and treatment.
- EKG without evident ischemia. Initial troponin is 0.093.
- Follow for changes in symptoms.
- Follow serial troponin to peak.
- Heparin started in the ED and will continue pending Cardiology evaluation.
- ASA daily. Increase statin intensity.
- Check lipids, A1C, etc.
Benign Hypertension
- Stable. Continue usual home med regimen with holding parameters.
Hiatal Hernia / GERD
- Not on any chronic acid suppression medications at home - despite reported uncontrolled symptoms of reflux.
- Begin PPI daily.
- Consider further GI evaluation after cardiac work-up / evaluation is completed.
Obesity due to excess calories
- Affects all aspects of care.
- Encourage healthy diet and increased exercise with goal of weight loss.
DVT Prophylaxis: On IV Heparin
Code Status: Full
[2025-02-01 05:00] LABS: Troponin I 0.431 ng/ml
[2025-02-01 06:00] LABS: Blood Urea Nitrogen 19 mg/dl (7-17); Calcium 8.6 mg/dl (8.4-10.2); Carbon Dioxide 25 mmol/L (22-30); Chloride 106 mmol/L (98-107); Estimated Creatinine Clearance 61 ml/min; Glucose 109 mg/dl (70-99); HDL Cholesterol 58 mg/dl; LDL Cholesterol, Calculated 94 mg/dl; Potassium 4.5 mmol/L (3.5-5.1); Sodium 135 mmol/L (135-145); Very Low Density Lipoprotein 16 mg/dl (0-30); eGFR > 60.00
--- NOTE | 2025-02-01 07:17 | PTCARENOTE ---
Received pt from ED RN into room 2246 @ approx 0520. Admission completed--see work list. SR on tele, HR 60's. pt denies any SOB and says CP was initially a 1/10, but with rest is now a 0/10. Heparin gtt infusing per protocol. pt oriented to room and
call [facility]. pt ambulating in room w/ assistance of RN and cane. Encouraged pt to call RN for assistance ambulating. Call [facility] within reach.
--- NOTE | 2025-02-01 08:13 | W.PN.HOSP.TC ---
Today's Communication/Plan
-
Heparin drip.
Going for cardiac cath today
Assessment / Plan
Assessment / Plan
Impression:
Patient is a 79y F with PMH significant for GERD / hiatal hernia, hypertension and JEREMI who presents to ED complaining of chest pain. Patient states that she developed substernal chest pain and mid back pain around 9:30 this evening while at the
casino. She left the casino and was on her way home but the pain did not improve. Patient denies any associated SOB, diaphoresis, nausea or lightheadedness. Pain was in a band-like fashion beneath the breasts / around the entire torso. Troponin
noted to be elevated, patient started on heparin drip and admitted to IVU
Seen by cardiology and plan for cardiac cath
Assessment/plan:
NSTEMI
Patient presented with chest pain, elevated troponin
No acute EKG changes
Heparin drip started in the ER.
Kept NPO.
Cardiology consult
Aspirin, statin, beta-samson
Patient will need updated echocardiogram.
Going for cardiac cath today
Benign Hypertension
- Stable. Continue usual home med regimen with holding parameters.
Hiatal Hernia / GERD
- Not on any chronic acid suppression medications at home - despite reported uncontrolled symptoms of reflux.
- Begin PPI daily.
- Consider further GI evaluation after cardiac work-up / evaluation is completed.
Obesity due to excess calories
BMI 36.8
Encourage healthy diet and increased exercise with goal of weight loss.
CODE STATUS: Full code
DVT prophylaxis: Heparin drip
Diet: N.p.o.
Family communication: Discussed with at bedside
Disposition: Heparin drip.
Going for cardiac cath today
Total time spent on today's encounter was 65 minutes which included time spent in counseling the patient/family regarding diagnosis and treatment plan as listed above, goals of care, and symptom management. Case was discussed with nursing staff,
specialists, and care coordinators/case management. All labs and imaging personally reviewed by me. Remainder the time spent in detailed review of previous records, lab data, imaging, and other medical provider documentation.
Anticipated Discharge: 24 - 48 hours
Subjective/Interval History
-
Date of Service: February 01, 2025
Patient seen and examined at bedside, at bedside, patient still have episodes of chest, no shortness of breath, no abdominal pain, no nausea, no vomiting, no diarrhea or constipation.
Objective Data
-
Labs:
Laboratory Results
02/01/25 02/01/25 02/01/25
00:24 02:18 05:00
WBC 9.0
Hgb 13.8
Hct 40.7
Plt Count 245
APTT 29.2 Cancelled
Sodium 135 135
Potassium 4.7 4.5
Chloride 102 106
Carbon Dioxide 28 25
BUN 23 H 19 H
Creatinine 1.0 0.8
Glucose 113 H 109 H
Calcium 9.5 8.6
Total Bilirubin 0.8
AST 30
ALT 27
Alkaline Phosphatase 81
02/01/25
08:45
WBC
Hgb
Hct
Plt Count
APTT Pending
Sodium
Potassium
Chloride
Carbon Dioxide
BUN
Creatinine
Glucose
Calcium
Total Bilirubin
AST
ALT
Alkaline Phosphatase
Vital Signs:
Vital Signs
Temp Pulse Resp BP Pulse Ox
97.8 F 64 15 151/70 93
02/01/25 07:20 02/01/25 07:30 02/01/25 07:20 02/01/25 07:18 02/01/25 07:20
I&O
01/31/25 02/01/25 02/02/25
06:59 06:59 06:59
Intake Total 0 / 0
Balance 0 / 0
Physical Exam
-
General: Well Developed, Well Nourished, No Apparent Distress and Comfortable
HEENT: Normocephalic, Atraumatic, Moist Mucous Membranes, No Ptosis, PERRLA and Nose Appears Normal
Respiratory: Clear to Auscultation and Non Labored Respirations
Cardiac: Regular Rhythm and S1/S2
Breast: Deferred by me
GI: Soft, Nontender, Nondistended and Normal Bowel Sounds
Genito-urinary: No Costovertebral Tender
Musculoskeletal: No Clubbing, No Cyanosis and No Edema
Skin: Warm
Neuro: Awake, Alert, Oriented, AO x 3 and No Motor Deficits
Psych: Calm
Data Reviewed
-
Diagnostic Radiology: Image personally visualized and interpreted and Report Reviewed by me
CT Scan: Image personally visualized and interpreted and Report Reviewed by me
Ultrasound: Image personally visualized and interpreted and Report Reviewed by me
MRI: Image personally visualized and interpreted and Report Reviewed by me
Medical Tests (Nuc Med, Echo etc): Image personally visualized and interpreted and Report Reviewed by me
Labs: Labs Reviewed by me
Old Records: Reviewed
[2025-02-01] MEDS: LOW STRENGTH ASPIRIN 81 MG PO (08:23)
[2025-02-01] MEDS: TOPROL XL 25 MG PO (08:24)
[2025-02-01] MEDS: ZESTRIL 5 MG PO (08:24)
[2025-02-01] MEDS: PROTONIX IV 40 MG IV (08:25)
[2025-02-01] MEDS: NSS (PRESERVATIVE FREE) 10 ML IV (08:25)
[2025-02-01] MEDS: FLUSH (NSS) 2 FLUSH IV (08:25)
--- NOTE | 2025-02-01 08:46 | CON.CAR ---
Addendum entered and electronically signed by Abdiftaah Fenton MD 02/01/25 09:00:
CT chest no evidence of dissection or PE. Scattered peripheral ground glass opacities inflammatory versus infectious on report would defer to primary team for evaluation of this.
Original Note:
Consultation
Consultation Request
Date/Time Consultation Requested: 02/01/2025 at 8 AM
Date/Time Consultation Performed: 02/01/2025 7 AM
Requesting Provider: Hospitalist
Performing Provider: Dr. Fenton
Reason for Consultation: Chest discomfort
Medical History
-
History of Present Illness:
79-year-old woman known to me from previous outpatient visits. Patient has a history of symptomatic PVCs, hypertension, hypercholesterolemia and GERD. Patient presented to the ER with chest discomfort. She states she was in her usual state of
health and she [place] the [place] when she developed midsternal chest discomfort with some associated back discomfort. Symptoms were moderate in intensity and chest discomfort persisted. No change with walking out to her car. She had her
drive her home and then to the ER. Symptoms persisted throughout that whole time and in the ER. Patient states symptoms resolved after administration of IV heparin and sublingual nitroglycerin. She states she has had intermittent chest discomfort
in the past which was mostly nocturnal and she would take Tums for this she has had this intermittently over the course the years although some of the quality of last night symptoms were similar both the intensity and duration were different. No
associated shortness of breath. She has sometimes felt a bit tired doing household activities like cooking but denies having any increased shortness of breath with ambulation. No orthopnea no lower extremity edema no bleeding issues. No allergies
to IV contrast. In the ER she had a CT which was negative for pulmonary embolism.
History of cardiac catheterization many years ago which she reports was unremarkable.
Past medical history
Hypertension hypercholesterolemia
GERD
Symptomatic PVCs
Hiatal hernia
JEREMI
Past surgical history
Left knee replacement
Left hip replacement
Social history at bedside non-smoker
family history based on record, parents with heart disease
Past Medical History
Past Medical History: Other (As above)
Past Surgical History: Other (As above)
Social History
Tobacco: Non-Smoker
Personal:
Living: With Family
Allergies / Home Medications
Allergy/AdvReac Type Severity Reaction Status Date / Time
adhesive tape Allergy Rash Verified 01/31/25 23:29
nitrofurantoin (From Allergy Unknown Verified 01/31/25 23:29
Macrodantin)
�Medication �Instructions �Recorded �Confirmed �Type
L.acidoph,paracasei,B.animalis 10 1 ea PO DAILY 01/27/16 02/01/25 History
billion cell capsule
cholecalciferol (vitamin D3) 25 1,000 unit PO DAILY 01/27/16 02/01/25 History
mcg (1,000 unit) capsule (Vitamin
D3)
coenzyme [id number] E 100 mg-5 1 ea PO DAILY 01/27/16 02/01/25 History
unit capsule (Co Q-10 (with Vit E))
cranberry extract 500 mg capsule 500 mg PO DAILY 01/27/16 02/01/25 History
cyanocobalamin (vitamin B-12) 1,000 mcg PO DAILY 01/27/16 02/01/25 History
1,000 mcg tablet
multivitamin (Multi-Day tablet) 1 ea PO DAILY 01/27/16 02/01/25 History
aspirin 81 mg tablet,delayed 162 mg (2 x 81 mg) PO BID ##0 06/03/16 02/01/25 Rx
release
magnesium hydroxide 400 mg/5 mL 30 ml PO DAILYPRN PRN constipation 06/03/16 02/01/25 Rx
oral suspension ##0
isosorbide mononitrate 30 mg 30 mg PO DAILY 02/01/25 02/01/25 History
tablet,extended release 24 hr
lisinopril 5 mg tablet 5 mg PO DAILY 02/01/25 02/01/25 History
metoprolol succinate 25 mg 25 mg PO DAILY 02/01/25 02/01/25 History
tablet,extended release 24 hr
simvastatin 20 mg tablet 20 mg PO DAILY 02/01/25 02/01/25 History
Review of Systems
-
All other systems: Negative unless noted
Physical Exam
Vital Signs
Temp Pulse Resp BP Pulse Ox
97.8 F 62 15 182/84 93
02/01/25 07:20 02/01/25 08:24 02/01/25 07:20 02/01/25 08:41 02/01/25 07:20
Lab Results
02/01/25 00:24
02/01/25 05:00
Troponin I 0.431 ng/ml H* D 02/01/25 03:32
Ixq-U-Uoltnyecdei Pept 564 pg/ml 02/01/25 00:24
Physical Exam
General: Well Developed and Well Nourished
HEENT: Normocephalic
Respiratory: Other (No wheezes rales or rhonchi)
Cardiac: Regular Rhythm and Other (No murmur rub or gallop)
GI: Soft, Non Tender and Non Distended
Musculoskeletal: No Clubbing, No Cyanosis and No Edema
Neuro: Awake, Alert and Oriented
Hematologic/Lymphatic: No Lymphadenopathy
Impression / Plan
-
Chest discomfort/ACS
- Chest discomfort consistent with angina. Troponin up to 0.4.
- Patient's had improvement in her symptoms although there was a question this morning if she had some faint residual chest sensation. Patient given sublingual nitroglycerin and changed to IV nitro.
- Continue heparin
- Aspirin
- Statin
- Cardiac catheterization today. Procedure and risks reviewed with the patient. Patient in agreement.
.
GERD. Continue PPI
.
Hypertension. Hypertensive this morning. Will reassess after patient receives additional morning medications and is placed on IV nitro
.
Hypercholesterolemia. LDL 94. Changed to atorvastatin
.
Data Reviewed
-
EKG: Report Reviewed by me
Radiology: Report Reviewed by me
Medical Tests (Nuc Med, Echo etc): Report Reviewed by me
Labs: Discussed with Physician
[2025-02-01] MEDS: NITROGLYCERIN PREMIX 250 IV (09:01)
[2025-02-01 09:15] LABS: APTT 82.4 Sec (23.4-35.0)
[2025-02-01 10:01] LABS: Troponin I 0.523 ng/ml
--- NOTE | 2025-02-01 11:04 | PTCARENOTE ---
Received patient this morning resting in bed, her stayed the night and was sitting in the chair. Patient stated she was having discomfort in the middle of her chest and throat. Having difficulty describing her pain, said it was nothing like
the pain that brought her in. Dr. De La Cruz in to see the patient. EKG done, Given NTG SL for 3-4/10 pain which she did not feel changed her pain level much. NTG gtt started at 5mcg/min and titrated now to 15mcg. States pain has improved, also having
back pain but when sitting at the side of the bed, stated that had improved. Giving NS at 100ml/hr as ordered, IV heparin therapeutic at 1000 units/hr. Patient NPO, for cardiac cath this AM.
--- NOTE | 2025-02-01 11:25 | CM ---
Chart reviewed. Patient is independent of ADLS, lives with her in a [address] [facility], ambulates with SPC. Plan is for the patient to return home. CM to follow
--- NOTE | 2025-02-01 14:03 | ITS.CL.CATH ---
Pastoral Counselor - Catheterization
Cardiac Catheterization
Procedure Report:
LEFT HEART CATHETERIZATION
Date of Procedure: February 01, 2025
Referring: Dr. Abdifatah Fenton
PROCEDURES:
1. Left heart catheterization with coronary and single-plane left ventriculography
2. Hemodynamic assessment of the RCA with a Harvey Omni wire. The iFR measures above the ischemic threshold
INDICATION: This is a 79-year-old female with a past medical history notable for symptomatic PVCs, hypertension and hyperlipidemia who presented to [facility] emergency room for evaluation of substernal chest and back discomfort. She
subsequently ruled in for a non-ST segment elevation myocardial infarction troponin levels gradually increasing from 0.093 ng/mL to 0.523 ng/mL. She is now referred for coronary angiography.
ACCESS: Right radial artery, 6 Vincentian sheath
HEMODYNAMICS : (mmHg)
AO (s/d) : 153/81, 112
LV (s/d) : 151/16
LVEDP : 33
CORONARY FINDINGS
DOMINANCE: Right
LEFT MAIN: Short and unobstructed
LEFT ANTERIOR DESCENDING: The LAD is a large-caliber vessel that arises normally from the left main and runs in the anterior interventricular groove. There is a 40% stenosis in the mid LAD near the origin of a small diagonal branch. The remainder
of the LAD has only minor luminal irregularities and the distal vessel wraps around the apex supplying a portion of the inferior wall.
CIRCUMFLEX: The circumflex is a large-caliber nondominant vessel that supplies a single sizable obtuse marginal branch
RIGHT CORONARY ARTERY: The right coronary artery is a dominant vessel that has an unusual low and anterior origin from the right coronary cusp and requires a multipurpose diagnostic catheter for engagement. Only minor irregularities were noted,
however, the ostium was not well-visualized. An iFR was performed and serially measured above the ischemic threshold at 0.98, 0.99, and 0.99.
VENTRICULOGRAPHY: Left ventriculography was performed in EVANS projection. The digital single-plane left ventricular ejection fraction is visually estimated at 65%. A focal basal anterolateral wall motion abnormality could not be excluded. There
was 4+ mitral regurgitation into a dilated left atrium. I cannot exclude pigtail catheter interaction with mitral apparatus.
SEDATION: 75 minutes of procedural sedation was utilized. An independent medical assistant dermatology was present to assist with and help manage the patient's level of consciousness and physiologic status.
RADIATION SUMMARY: Fluoro Time (min): 24.5, Dose (mGy): 1057, DAP (Gy.cm2) : 79.1
Closure Device: TR band
CONCLUSIONS
1. Nonobstructive coronary disease
2. Globally preserved LV systolic function with 4+ mitral regurgitation; possibly catheter associated
RECOMMENDATIONS
1. Will obtain transthoracic echocardiogram
2. Continue to trend serial troponin levels
3. Further management decisions to be made after the echocardiogram is completed
Copy to: Dr. Abdifatah Fenton
[2025-02-01] MEDS: NSS IV ×3 (14:26→21:52)
[2025-02-01 17:16] LABS: Troponin I 0.392 ng/ml
[2025-02-01] MEDS: LIPITOR 40 MG PO (17:37)
[2025-02-01] MEDS: IMDUR (EXTENDED RELEASE) 30 MG PO (17:40)
--- NOTE | 2025-02-01 18:12 | PTCARENOTE ---
Received patient at 1345 after cardiac cath via right radial artery. Radial band still in place, no signs of hematoma with a strong radial pulse and pulse ox of 96%. Had to delay removing air from the band initially when she had some oozing but
progressing now with air removal. Echo done at the bedside. Patient denies any chest pain, nitro gtt weaned off and she received her post cath IVF. OOB to the commode to void multiple times, call moreno in reach, visiting with family.
--- NOTE | 2025-02-01 21:01 | PTCARENOTE ---
assumed care of patient at the change of shift. AAOx3. SR with PVCs on [id number]. denies any cp/sob at this time. CPAP HS. frequent urination-baseline per patient. R radial site CDI. + pulses. reviewed plan of care with patient and verbalized
understanding. educated patient to inform RN with any changes overnight. call moreno within reach. makes needs known.
[2025-02-02 04:32] VITALS: BP 106/53
[2025-02-02 05:36] LABS: Blood Urea Nitrogen 15 mg/dl (7-17); Calcium 9.1 mg/dl (8.4-10.2); Carbon Dioxide 27 mmol/L (22-30); Chloride 107 mmol/L (98-107); Estimated Creatinine Clearance 49 ml/min; Glucose 96 mg/dl (70-99); Potassium 4.2 mmol/L (3.5-5.1); Sodium 137 mmol/L (135-145); eGFR 57.66
[2025-02-02] MEDS: NSS IV ×3 (06:21→16:02)
[2025-02-02 07:14] VITALS: BP 143/60
--- NOTE | 2025-02-02 07:54 | W.PN.CD ---
Today's Communication / Plan
-
- no more CP . radial cath site fine
- . No evidence of obstructive coronary artery disease based on cardiac catheterization. Mild to moderate nonobstructive disease in LAD estimated EF 40%. Microvascular angina or spasma slo considerations.
- ASA
- Inreased Imdur to 60mg ( patient did not julian to try amlodipine , sheis afraid of incresed leg swelling)
- Increase Imdur to 60mg a day
- NTG PRN
- Change statin to Crestor . patietn initially did not want to change and is concerned about making dose to high to fastt. Has agreed to change to Crestor and we will adjust dosing as outpatient.
- lower Lisinopril
- Note patient has also had some pains in past ( long statnding) that are likely non cardiac and some may more consistent with GERD. Would use PPI. ( prilosec or protonics daily)
Impression / Plan
-
Chest discomfort/
- Chest discomfort Troponin up to 0.5. In range of NSTEMI. Mechanism unclear
- no more CP . radial cath site fine
- . No evidence of obstructive coronary artery disease based on cardiac catheterization. Mild to moderate nonobstructive disease in LAD estimated EF 40%. Microvascular angina or spasma slo considerations.
- ASA
- Inreased Imdur to 60mg ( patient did not julian to try amlodipine , sheis afraid of incresed leg swelling)
- Increase Imdur to 60mg a day
- NTG PRN
- Change statin to Crestor . patietn initially did not want to change and is concerned about making dose to high to fastt. Has agreed to change to Crestor and we will adjust dosing as outpatient.
- lower Lisinopril
- Note patient has also had some pains in past ( long statnding) that are likely non cardiac and some may more consistent with GERD. Would use PPI. ( prilosec or protonics daily)
.
GERD. Continue PPI
.
Hypertension. Hypertensive this morning. Will reassess after patient receives additional morning medications and is placed on IV nitro
.
Hypercholesterolemia. LDL 94. Changed to Crestor
.
Physical Exam
Vital Signs/Labs
Vital Signs
Temp Pulse Resp BP Pulse Ox
97.6 F 71 20 106/53 93
02/02/25 07:11 02/02/25 04:32 02/02/25 07:11 02/02/25 04:32 02/02/25 07:11
02/01/25 02/02/25 02/03/25
06:59 06:59 06:59
Actual Weight 91.3 kg
02/01/25 00:24
02/02/25 04:37
APTT 82.4 Sec (23.4-35.0) H 02/01/25 08:57
Triglycerides 81 mg/dl (10-149) 02/01/25 05:00
LDL Cholesterol, Calc 94 mg/dl 02/01/25 05:00
VLDL Cholesterol, Calc 16 mg/dl (0-30) 02/01/25 05:00
HDL Cholesterol 58 mg/dl 02/01/25 05:00
02/01/25 02/01/25
00:24 16:40
Ter-Z-Rprxojvtsnt Pept 564 3900
LAB Results
02/01/25 02/01/25 02/01/25
00:24 03:32 08:57
Troponin I 0.093 H* 0.431 H* D 0.523 H*
02/01/25 02/01/25 02/01/25
12:09 16:40 18:09
Troponin I Cancelled 0.392 H* D Cancelled
Physical Exam
Constitutional: No acute distress
Cardiovascular: Rhythm & rate is regular
Respiratory: Wheeze Absent and Rhonchi Absent
GI: Soft
Other: Other (cath site fine)
Data Reviewed
-
Date of Service: February 02, 2025
Medical Decision Making: Reviewed Test Results
Medical Tests (PFT, Pathology etc): Report Reviewed by me
Labs: Labs Reviewed by me
[2025-02-02] MEDS: NSS (PRESERVATIVE FREE) 10 ML IV (08:18)
[2025-02-02] MEDS: PROTONIX IV 40 MG IV (08:18)
[2025-02-02] MEDS: ZESTRIL 2.5 MG PO (08:19)
[2025-02-02] MEDS: TOPROL XL 25 MG PO (08:19)
[2025-02-02] MEDS: IMDUR (EXTENDED RELEASE) 60 MG PO (08:19)
[2025-02-02] MEDS: LOW STRENGTH ASPIRIN 81 MG PO (08:19)
--- NOTE | 2025-02-02 10:46 | PTCARENOTE ---
received patient in bed eating breakfast. monitor shows NSR, VSS. patient has no complains right radial dsg. D/I, distal pulse palpable. patient is hoping to be discharged to home today.
[2025-02-02 11:43] VITALS: BP 113/59
--- NOTE | 2025-02-02 12:17 | W.PN.HOSP.TC ---
Today's Communication/Plan
-
Discharge home
Assessment / Plan
Assessment / Plan
Impression:
Patient is a 79y F with PMH significant for GERD / hiatal hernia, hypertension and JEREMI who presents to ED complaining of chest pain. Patient states that she developed substernal chest pain and mid back pain around 9:30 this evening while at the
casino. She left the casino and was on her way home but the pain did not improve. Patient denies any associated SOB, diaphoresis, nausea or lightheadedness. Pain was in a band-like fashion beneath the breasts / around the entire torso. Troponin
noted to be elevated, patient started on heparin drip and admitted to IVU
Seen by cardiology and plan for cardiac cath
Cardiac cath shows nonobstructive coronary artery disease.
CONCLUSIONS
1. Nonobstructive coronary disease
2. Globally preserved LV systolic function with 4+ mitral regurgitation; possibly catheter associated
RECOMMENDATIONS
1. Will obtain transthoracic echocardiogram
2. Continue to trend serial troponin levels
3. Further management decisions to be made after the echocardiogram is completed
Symptoms improved.
Cardiology adjusted cardiac meds.
Echocardiogram done showed
1. Normal biventricular size and systolic function without regional wall motion abnormality. LVEF 55-60%.
2. Mild to moderate mitral regurgitation.
3. Moderate tricuspid regurgitation. PASP 39 mmHg.
4. Compared to prior echocardiogram in September 2024, mitral regurgitation is stable. Tricuspid regurgitation has progressed from 'mild to moderate'.
Assessment/plan:
NSTEMI
Patient presented with chest pain, elevated troponin
No acute EKG changes
Heparin drip started in the ER.
Kept NPO.
Cardiology consult
Aspirin, statin, beta-samson
Cardiac cath shows nonobstructive coronary artery disease.
Echocardiogram done showed
1. Normal biventricular size and systolic function without regional wall motion abnormality. LVEF 55-60%.
2. Mild to moderate mitral regurgitation.
3. Moderate tricuspid regurgitation. PASP 39 mmHg.
4. Compared to prior echocardiogram in September 2024, mitral regurgitation is stable. Tricuspid regurgitation has progressed from 'mild to moderate
Cardiac readjusted cardiac meds
Benign Hypertension
- Stable. Continue usual home med regimen with holding parameters.
Hiatal Hernia / GERD
- Not on any chronic acid suppression medications at home - despite reported uncontrolled symptoms of reflux.
- Begin PPI daily.
- Consider further GI evaluation after cardiac work-up / evaluation is completed.
Obesity due to excess calories
BMI 36.8
Encourage healthy diet and increased exercise with goal of weight loss.
CODE STATUS: Full code
DVT prophylaxis: Heparin drip
Diet: Cardiac
Family communication: Discussed with at bedside
Disposition: Discharge home
Total time spent on today's encounter was 65 minutes which included time spent in counseling the patient/family regarding diagnosis and treatment plan as listed above, goals of care, and symptom management. Case was discussed with nursing staff,
specialists, and care coordinators/case management. All labs and imaging personally reviewed by me. Remainder the time spent in detailed review of previous records, lab data, imaging, and other medical provider documentation.
Anticipated Discharge: Today
Subjective/Interval History
-
Date of Service: February 02, 2025
Patient seen and examined at bedside, denies any chest pain or shortness of breath, no abdominal pain, no nausea, no vomiting, no diarrhea or constipation.
Objective Data
-
Labs:
Laboratory Results
02/02/25
04:37
Sodium 137
Potassium 4.2
Chloride 107
Carbon Dioxide 27
BUN 15
Creatinine 1.0
Glucose 96
Calcium 9.1
Vital Signs:
Vital Signs
Temp Pulse Resp BP Pulse Ox
98.1 F 72 18 143/60 93
02/02/25 11:40 02/02/25 09:19 02/02/25 11:40 02/02/25 08:19 02/02/25 11:40
I&O
02/01/25 02/02/25 02/03/25
06:59 06:59 06:59
Intake Total 0 / 0 980 / 980
Balance 0 / 0 980 / 980
Physical Exam
-
General: Well Developed, Well Nourished, No Apparent Distress and Comfortable
HEENT: Normocephalic, Atraumatic, Moist Mucous Membranes, No Ptosis, PERRLA and Nose Appears Normal
Respiratory: Clear to Auscultation and Non Labored Respirations
Cardiac: Regular Rhythm and S1/S2
Breast: Deferred by me
GI: Soft, Nontender, Nondistended and Normal Bowel Sounds
Genito-urinary: No Costovertebral Tender
Musculoskeletal: No Clubbing, No Cyanosis and No Edema
Skin: Warm
Neuro: Awake, Alert, Oriented, AO x 3 and No Motor Deficits
Psych: Calm
[2025-02-02 13:12] VITALS: BP 109/48
--- NOTE | 2025-02-02 13:32 | PTCARENOTE ---
patient c/o feeling tired after the increase in IMDUR, BP 109/48, HR 66. Dr. Fenton aware, came up to talk with patient. will change some medications and maybe discharge this afternoon.
--- NOTE | 2025-02-02 13:38 | W.PN.UPDATE ---
Update Note
Progress Note Update
Patient reassessed patient but she did not feels well on the higher dose of Imdur. She will fine with ambulation she just said she felt tired today. Unclear if it is because she did not have his good sleep last night in the hospital. After
further discussion with patient and regarding her concerns she will be placed back to Imdur 30 and back on lisinopril 5 which was her previous dosing. Only new medications will be rosuvastatin, clopidogrel and nitroglycerin. Patient will remain on
aspirin 81 mg a day. Simvastatin is discontinued. I offered to have the patient further observed overnight if she had concerns of how she is feeling. Patient says now she is feeling better and and would like to go home later today. Reviewed with
hospitalist if patient continues to feel well, blood pressure stable and she is ambulating without symptoms then she could be discharged later today. Also medication changes reviewed with hospitalist
--- NOTE | 2025-02-02 13:40 | W.DCSUMMARY ---
Discharge Summary
Discharge Data
Date of Admission: 02/01/25
Date of Discharge: 02/02/25
Total time spent discharging patient (in min): 40
-
Pending Results: No
Hospital Course
Hospital course
Patient is a 79y F with PMH significant for GERD / hiatal hernia, hypertension and JEREMI who presents to ED complaining of chest pain. Patient states that she developed substernal chest pain and mid back pain around 9:30 this evening [place] She left the [place] and was on her way home but the pain did not improve. Patient denies any associated SOB, diaphoresis, nausea or lightheadedness. Pain was in a band-like fashion beneath the breasts / around the entire torso. Troponin
noted to be elevated, patient started on heparin drip and admitted to IVU
Seen by cardiology and plan for cardiac cath
Cardiac cath shows nonobstructive coronary artery disease.
CONCLUSIONS
1. Nonobstructive coronary disease
2. Globally preserved LV systolic function with 4+ mitral regurgitation; possibly catheter associated
RECOMMENDATIONS
1. Will obtain transthoracic echocardiogram
2. Continue to trend serial troponin levels
3. Further management decisions to be made after the echocardiogram is completed
Symptoms improved.
Cardiology adjusted cardiac meds.
Echocardiogram done showed
1. Normal biventricular size and systolic function without regional wall motion abnormality. LVEF 55-60%.
2. Mild to moderate mitral regurgitation.
3. Moderate tricuspid regurgitation. PASP 39 mmHg.
4. Compared to prior echocardiogram in September 2024, mitral regurgitation is stable. Tricuspid regurgitation has progressed from 'mild to moderate'.
Will be discharged on Plavix, rosuvastatin, nitroglycerin as needed.
During hospitalization patient was treated from the following
NSTEMI
Patient presented with chest pain, elevated troponin
No acute EKG changes
Heparin drip started in the ER.
Kept NPO.
Cardiology consult
Aspirin, statin, beta-samson
Cardiac cath shows nonobstructive coronary artery disease.
Echocardiogram done showed
1. Normal biventricular size and systolic function without regional wall motion abnormality. LVEF 55-60%.
2. Mild to moderate mitral regurgitation.
3. Moderate tricuspid regurgitation. PASP 39 mmHg.
4. Compared to prior echocardiogram in September 2024, mitral regurgitation is stable. Tricuspid regurgitation has progressed from 'mild to moderate
Cardiology recommending Plavix on discharge, nitroglycerin as needed
Switch simvastatin to Crestor
Benign Hypertension
- Stable. Continue usual home med regimen with holding parameters.
Hiatal Hernia / GERD
- Not on any chronic acid suppression medications at home - despite reported uncontrolled symptoms of reflux.
- Begin PPI daily.
- Consider further GI evaluation after cardiac work-up / evaluation is completed.
Obesity due to excess calories
BMI 36.8
Encourage healthy diet and increased exercise with goal of weight loss.
CODE STATUS: Full code
DVT prophylaxis: Heparin drip
Diet: Cardiac
Family communication: Discussed with at bedside
Disposition: Discharge home
Total time spent on today's encounter was 40 minutes which included time spent in counseling the patient/family regarding diagnosis and treatment plan as listed above, goals of care, and symptom management. Case was discussed with nursing staff,
specialists, and care coordinators/case management. All labs and imaging personally reviewed by me. Remainder the time spent in detailed review of previous records, lab data, imaging, and other medical provider documentation.
Anticipated Discharge: Today
Discharge Plan
-
Patient Disposition: Home (Routine Discharge)
Discharge Diagnosis/Procedures: Cardiac cath
Chest pain
Condition: Fair
Diet: Low Cholesterol
Driving Restrictions: No driving for 24 hours
Stand Alone Forms: DC Instructions- Cath/EP Lab
Referrals:
Kriss Baird CRNP [Specified Professional Personl, Cardiology] - 02/18/25 10:40 am
Charlotte Courtney MD [Family Provider, Internal Medicine]
Prescriptions:
New
nitroglycerin 0.4 mg Tablet, Sublingual
0.4 mg sublingual [id number] PRN (Reason: Chest Pain) Qty: 100 0RF
rosuvastatin 20 mg Tablet
20 mg PO QPM 30 Days Qty: 30 0RF
(DME) Outpatient physical therapy
See Rx Instructions .Route .MEDSUPPLY Qty: 1 0RF
Rx Instructions:
To be done 3 times weekly.
Diagnosis: Ambulatory dysfunction
(DME) walker Misc
See Rx Instructions .Route Qty: 1 0RF
Rx Instructions:
As directed
clopidogrel [Plavix] 75 mg tablet
75 mg PO DAILY Qty: 30 0RF
Continued
multivitamin [Multi-Day] 1 EACH tablet
1 ea PO DAILY
cyanocobalamin (vitamin B-12) 1,000 MCG tablet
1,000 mcg PO DAILY
cholecalciferol (vitamin D3) [Vitamin D3] 1,000 UNIT capsule
1,000 unit PO DAILY
cranberry extract 500 MG capsule
500 mg PO DAILY
coenzyme [id number] [Co Q-10 (with Vit E)] 1 EACH capsule
1 ea PO DAILY
L.acidoph,paracasei,B.animalis 1 EACH capsule
1 ea PO DAILY
Patient Comments:
Takes Align
aspirin 81 MG tablet,delayed release (DR/EC)
162 mg PO BID Qty: 0 0RF
Rx Instructions:
w food
magnesium hydroxide 30 ML suspension
30 ml PO DAILYPRN PRN (Reason: constipation) Qty: 0 0RF
isosorbide mononitrate 30 mg tablet extended release 24 hr
30 mg PO DAILY
lisinopril 5 mg tablet
5 mg PO DAILY
metoprolol succinate 25 mg tablet extended release 24 hr
25 mg PO DAILY
Discontinued
simvastatin 20 mg tablet
20 mg PO DAILY
Discharge Orders:
Discharge Patient (As Directed); Ordered 02/02/25
Ordered By: Alina Lynn
Care Plan Goals
Care Plan Goals:
Problem: Readiness for enhanced knowledge related to diagnosis and treatment plan
Goal: Understand your diagnosis and treatment plan needs, including medications if applicable.
Instructions: Know your diagnosis, underlying causes and treatment plan options, including medications if applicable. Consult with your health care team to learn about your diagnosis and treatment plan, including medications if applicable.
Discharge Date and Time
Print Language: LITHUANIAN
[2025-02-02] MEDS: PLAVIX 75 MG PO (13:58)
[2025-02-02 14:02] VITALS: BP 143/55
--- NOTE | 2025-02-02 14:11 | PTCARENOTE ---
reassessed patient, she wanted her BP taken, 143/55, HR 62. patient statient she feel tired but better. Dr. Fenton and Dr. Lynn aware, changed medications, patient aware. also patient uses cane at home and doesnot use her cane in the house,
patient doesn't want script for walker or PT. Dr. lynn aware.
[2025-02-02 15:07] VITALS: BP 121/54
--- NOTE | 2025-02-02 15:36 | PTCARENOTE ---
D/C instructions given to patient and , both verbalized understanding. patient doesn't want a walker or a script for PT, TT Dr. Lynn, no further orders. INT D/C'd, telemetry D/C'd, personal belongings packed and sent with patient. D/C to
home via wc accompanied by staff.
[2025-02-04 11:17] LABS: ACT-LR - POC 252 Seconds (116-155)
[2025-02-04 11:17] LABS: ACT-LR - POC 247 Seconds (116-155)
== END 2025-02-02 16:03 | disposition home or self-care (01) | DRG 287 ==
LOC: IVU 15:28
PROVIDERS: Internal Medicine Interventional Cardiology; Nurse Practitioner Adult Health; Physician Assistant; ADMITTING PHYSICIAN Hospitalist; ATTENDING PHYSICIAN General Practice; EMERGENCY PHYSICIAN Student in an Organized Health Care Education/Training Program; FAMILY PHYSICIAN Internal Medicine; REFERRING PHYSICIAN Internal Medicine Cardiovascular Disease
PROC: 4A023N7 Measurement of Cardiac Sampling and Pressure, Left Heart, Percutaneous Approach (ICD-10-PCS; 2025-02-01)
PROC: B211YZZ Fluoroscopy of Multiple Coronary Arteries using Other Contrast (ICD-10-PCS; 2025-02-01)
PROC: B215YZZ Fluoroscopy of Left Heart using Other Contrast (ICD-10-PCS; 2025-02-01)
PROC: 4A033BC Measurement of Arterial Pressure, Coronary, Percutaneous Approach (ICD-10-PCS; 2025-02-01)
DX: I25.10 Atherosclerotic heart disease of native coronary artery without angina pectoris (principal); I10 Essential (primary) hypertension; E66.09 Other obesity due to excess calories; E78.00 Pure hypercholesterolemia, unspecified; G47.33 Obstructive sleep apnea (adult) (pediatric); K44.9 Diaphragmatic hernia without obstruction or gangrene; K21.9 Gastro-esophageal reflux disease without esophagitis; I49.3 Ventricular premature depolarization; R79.89 Other specified abnormal findings of blood chemistry; I08.1 Rheumatic disorders of both mitral and tricuspid valves; Z68.36 Body mass index [BMI] 36.0-36.9, adult; Z96.652 Presence of left artificial knee joint; Z96.642 Presence of left artificial hip joint; Z79.82 Long term (current) use of aspirin; Z79.899 Other long term (current) drug therapy; Z82.49 Family history of ischemic heart disease and other diseases of the circulatory system; Z91.048 Other nonmedicinal substance allergy status; Z79.02 Long term (current) use of antithrombotics/antiplatelets
CPT/HCPCS: 71046; 71275; 74174; 80048; 80053; 80061; 83880; 84484; 85025; 85347; 85379; 85730; 93005; 93306; 93458; 93799; 96361; 96365; 96366; 96375; 99152; 99153; 99291; C1769; C1887; C1894; Q9967

== ENCOUNTER 2025-03-17 01:25 | Emergency (ER) | payer MEDICARE, OTHER, SELFPAY ==
[2025-03-17 01:35] VITALS: BP 222/98
[2025-03-17 02:06] VITALS: BP 159/102
[2025-03-17 02:48] LABS: Hematocrit 37.2 % (37.0-47.0); Hemoglobin 12.7 g/dL (12.0-16.0); Mean Corp Hgb Conc. 34.1 g/dL (33.0-37.0); Mean Corpuscular Volume 87.5 fL (81.0-99.0); Nucleated Red Blood Cells % 0 %; Platelet Count 220 10^3/uL (130-400); Red Cell Dist. Width 12.8 % (11.5-14.5)
[2025-03-17 02:56] LABS: INR 0.95; PT 13.0 Sec (11.4-14.6)
[2025-03-17 02:57] LABS: APTT 29.3 Sec (23.4-35.0)
[2025-03-17 03:01] VITALS: BP 164/84
[2025-03-17 03:18] LABS: ALT (SGPT) 27 U/L (0-35); AST (SGOT) 27 U/L (14-36); Albumin 4.3 g/dl (3.5-5.0); Alkaline Phosphatase 98 U/L (38-126); Blood Urea Nitrogen 25 mg/dl (7-17); Calcium 9.6 mg/dl (8.4-10.2); Carbon Dioxide 31 mmol/L (22-30); Chloride 100 mmol/L (98-107); Glucose 115 mg/dl (70-99); Magnesium 2.0 mg/dl (1.6-2.3); Potassium 4.1 mmol/L (3.5-5.1); Sodium 138 mmol/L (135-145); Total Protein 7.0 g/dl (6.3-8.2); eGFR 57.66
[2025-03-17 03:40] LABS: Troponin I < 0.012 ng/ml
--- NOTE | 2025-03-17 04:56 | ED.GENMED ---
History of Present Illness
General
Chief Complaint: Blood Pressure Problem
Source: patient
Exam Limitations: none
Time Seen by Provider: 03/17/25 01:47 EST
Nursing documentation reviewed up to this point in time: agreed with
History of Present Illness
History of Present Illness:
Note:
CHIEF COMPLAINT(S)
Elevated blood pressure
HISTORY OF PRESENT ILLNESS
The patient is a 79-year-old female with a history of cardiovascular issues, including undergoing a cardiac catheterization after presenting with severe chest pain on February 01. Post-procedure, she was prescribed Clopidogrel and had her
cholesterol medication switched to Rosuvastatin. Recently, she noted a rash on her arms but was reassured by a physician that it was not an allergic reaction. She began taking non-drowsy Claritin, after which she experienced exacerbated premature
ventricular contractions (PVCs).
Yesterday, the patient recorded markedly elevated blood pressure readings: 210/118 mmHg and 208/105 mmHg, prompting her to take an additional 5 mg of Lisinopril upon medical advice. Her morning medications include 5 mg Lisinopril, 30 mg Isosorbide,
and 25 mg Metoprolol. Subsequent readings showed 147/79 mmHg and 130/81 mmHg after the extra Lisinopril. Later that evening, she noted pressures of 168/92 mmHg to 196/99 mmHg. She was advised by her physician to take an additional dose of Lisinopril
if needed but expressed concern about her kidney function. She reported decreased urination and referred to a recent decrease in her glomerular filtration rate (GFR) from 68 to 54 following a dye test conducted during her previous hospital stay.
On presentation today, her initial blood pressure was 222/106 mmHg, now decreased to 159/102 mmHg. The patient seeks evaluation due to persistent high blood pressure, reduced urination, and concerns regarding possible renal compromise.
SOCIAL HISTORY
Not discussed in detail within the provided conversation.
REVIEW OF SYSTEMS
- Cardiovascular: Reports markedly elevated blood pressure readings and exacerbated PVCs.
- Genitourinary: Decreased urination.
- Dermatological: Rash on the arms, not deemed allergic by evaluation.
PHYSICAL EXAM
General: Alert, no acute distress.
Skin: Warm, dry.
Head: Normocephalic, atraumatic.
Neck: Supple, trachea midline.
Eye, ears, nose, and throat: Oral mucosa moist.
Cardiovascular: Normal peripheral perfusion, no edema.
Respiratory: Respirations are non-labored.
Gastrointestinal: Abdomen nondistended.
Back: Normal range of motion, normal alignment.
Musculoskeletal: Normal range of motion, normal strength.
Neurological: Alert and oriented to person, place, time, and situation, no focal neurological deficit observed.
Psychiatric: Cooperative, appropriate mood & affect.
PROBLEM LIST
Acute:
- Hypertensive urgency
- Decreased urine output
Chronic:
- Cardiovascular conditions as indicated by previous cardiac catheterization
PLAN
- Conduct lab work to evaluate renal function and other pertinent assessments.
- Monitor blood pressure and adjust antihypertensive medications as needed.
- Further evaluation and potential adjustment of Lisinopril dosage based on response and lab results.
- Consider the need for nephrology/urology consultation if renal concerns persist.
DIFFERENTIAL DIAGNOSIS
The Differential Diagnosis includes, in no particular order and is not limited to:
1. Hypertensive crisis now resolved
2. Secondary hypertension due to renal artery stenosis
3. Acute kidney injury
4. Congestive heart failure exacerbation
5. Medication-induced hypertension (e.g., interactions)
6. Urinary tract infection
7. Glomerulonephritis
8. Electrolyte imbalance
9. Obstructive uropathy
10. Dehydration or volume depletion
Past History
Past History
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
ED Past Surgical History: and Orthopedic
Social History
Tobacco: Non-smoker
Alcohol: None
Drug: None
Personal:
Living: with family
Employment: Retired
Family History
Family History: CAD
Review of Systems
Review of Systems
Allergies reviewed?: Yes
All Other Systems: ROS reviewed and negative except as documented in HPI and ROS
Phy Exam
Physical Exam
Physical Exam:
.
Course
Orders/Labs/Results
Orders:
Orders
03/17/25 01:40
EKG [Electrocardiogram (*1)] Urgent
Reason for Study: Hypertension, Benign
EKG- Treatment ONCE
03/17/25 02:20
Cardiac Monitoring- Treatment ONCE
CR Chest - 2 Views Urgent
Comment:
Reason For Exam: htn
03/17/25 02:40
Complete Blood Count/With Diff Urgent
Comprehensive Metabolic Panel Urgent
Magnesium Urgent
NT-proBNP Urgent
PTT Urgent
Prothrombin Time Urgent
Troponin I Urgent
Abnormal Lab Results
03/17/25
02:40
Absolute Neuts (auto) 6.6 H 10^3/uL
(1.4-6.5)
Absolute Monos (auto) 0.7 H 10^3/uL
(0.1-0.6)
Lymphocytes % 15.8 L %
(20.5-51.1)
Carbon Dioxide 31 H mmol/L
(22-30)
BUN 25 H mg/dl
(7-17)
Glucose 115 H mg/dl
(70-99)
03/17/25 02:40
03/17/25 02:40
Vital Signs
Initial and Last Documented VS:
Initial Vital Signs
Temp Pulse Resp BP Pulse Ox
97.6 F 94 18 222/98 98
03/17/25 01:35 EST 03/17/25 01:35 EST 03/17/25 01:35 EST 03/17/25 01:35 EST 03/17/25 01:35 EST
Last Documented Vital Signs
Temp Pulse Resp BP Pulse Ox
97.6 F 57 16 164/84 93
03/17/25 01:35 EST 03/17/25 03:30 03/17/25 03:30 03/17/25 03:01 03/17/25 03:30
*Pulse Oximetry
SaO2: 93
Oxygen Mode of Delivery: Room air
Patient hypoxic: no
*Critical Care Note
Total Time (30-74mins, 75-104mins- exclusive of procedures): Not Applicable
ED Attending Note
-
Portions of this chart may have been created with voice recognition software.� Occasional wrong word or��sound alike� substitutions may have occurred due to the inherent limitations of voice recognition software.
Discharge Plan
Departure
Patient Disposition: Home (Routine Discharge)
Date of Disposition: 03/17/25
Time of Disposition: 05:00
Patient with high blood pressure during this ER visit?: Yes
Condition: Good
Discharge Problem:
Hypertension
Instructions: High Blood Pressure (DC)
Prescriptions:
No Action
multivitamin [Multi-Day] 1 EACH tablet
1 ea PO DAILY
cyanocobalamin (vitamin B-12) 1,000 MCG tablet
1,000 mcg PO DAILY
cholecalciferol (vitamin D3) [Vitamin D3] 1,000 UNIT capsule
1,000 unit PO DAILY
cranberry extract 500 MG capsule
500 mg PO DAILY
coenzyme [id number] [Co Q-10 (with Vit E)] 1 EACH capsule
1 ea PO DAILY
L.acidoph,paracasei,B.animalis 1 EACH capsule
1 ea PO DAILY
Patient Comments:
Takes Align
magnesium hydroxide 30 ML suspension
30 ml PO DAILYPRN PRN (Reason: constipation) Qty: 0 0RF
isosorbide mononitrate 30 mg tablet extended release 24 hr
30 mg PO DAILY
lisinopril 5 mg tablet
5 mg PO DAILY
metoprolol succinate 25 mg tablet extended release 24 hr
25 mg PO DAILY
nitroglycerin 0.4 mg Tablet, Sublingual
0.4 mg sublingual [id number] PRN (Reason: Chest Pain) Qty: 100 0RF
rosuvastatin 20 mg Tablet
20 mg PO QPM 30 Days Qty: 30 0RF
clopidogrel [Plavix] 75 mg tablet
75 mg PO DAILY Qty: 30 0RF
aspirin 81 MG tablet,delayed release (DR/EC)
162 mg PO DAILY Qty: 0 0RF
Rx Instructions:
w food
Referrals:
Charlotte Courtney MD [Family Provider, Internal Medicine]
Activity Restrictions/Additional Instructions:
Thank You for choosing [facility].
It was a pleasure meeting you and taking part in your care. We hope for your continued healing and wellness.
Please read discharge instructions in their entirety. However, they are for general education and may not describe your exact diagnosis at discharge. Information on your ER visit and medical conditions were discussed with you along with appropriate
follow up information...
If indicated, please take your medications as instructed and indicated on discharge paperwork.
Please schedule a follow up appointment as directed. Call to schedule an appointment
Please return to the emergency department with ANY change in, persisting, or worsening of symptoms. If any of your symptoms do not improve, or persist, or become more severe within 6-12 hours, please return to the emergency department for further
care.
Please return to the emergency department if you develop a headache, neck pain/stiffness, fever greater than 100.4F, chest pain, shortness of breath, persistent nausea, vomiting, slurred speech, difficulty walking, numbness/tingling, weakness, signs
of infection or any other symptoms that are worrisome to you.
If you have any questions or concerns please do not hesitate to call the Hospital at .
Interventions
Interventions:
*Risk Screen - Suicide Last Done: 03/17/25 01:35
*General Assessment Last Done: 03/17/25 01:35
*Neglect/Abuse Screening Last Done: 03/17/25 01:35
ED- Cardiac Assessment Last Done: 03/17/25 02:07
ED- Neurological Assessment Last Done: 03/17/25 02:07
ED- Pulmonary Assessment Last Done: 03/17/25 02:07
Discharge Date and Time
Print Language: [place]
== END 2025-03-17 05:17 | disposition home or self-care (01) ==
LOC: EMR 01:25
PROVIDERS: EMERGENCY PHYSICIAN Student in an Organized Health Care Education/Training Program; FAMILY PHYSICIAN Internal Medicine
DX: I10 Essential (primary) hypertension (principal); E78.00 Pure hypercholesterolemia, unspecified; Z79.02 Long term (current) use of antithrombotics/antiplatelets; Z79.82 Long term (current) use of aspirin; Z82.49 Family history of ischemic heart disease and other diseases of the circulatory system
CPT/HCPCS: 99284; 71046; 80053; 83735; 83880; 84484; 85025; 85610; 85730; 93005

== ENCOUNTER → 2025-04-19 10:33 | Outpatient (REF) | payer MEDICARE, OTHER, SELFPAY | LOC: HWRAD 10:33 | PROVIDERS: ATTENDING PHYSICIAN Internal Medicine Cardiovascular Disease; FAMILY PHYSICIAN Internal Medicine | DX: I10 Essential (primary) hypertension (principal) | CPT/HCPCS: 93975 ==